=== PATIENT | male | born 1990 | race Caucasian/White ===

== ENCOUNTER 2019-03-07 15:56 | Emergency (ER) | payer OTHER ==
[~2019-03-07] VITALS: Wt 120.0 kg
[2019-03-07 15:59] VITALS: BP 160/89; PULSE 99; RESP 18
[2019-03-07] MEDS ORDERED: IBUPROFEN 800 MG TAB PO ONE (17:00)
[2019-03-07] MEDS ORDERED: IBUP-1542 PO (17:06)
--- NOTE | 2019-03-07 18:15 | ERD ---
ER Documentation Chief Complaint Chief Complaint LEFT ANKLE PAIN HPI Patient is a 28-year-old male with no medical problems who presents with left- sided foot pain. The patient said that he jumped off of a truck and landed on his foot and had pain afterwards. It happened 2 days ago. He has been walking on it. He has had no treatment for the pain as of yet. He denies knee pain. He does have a primary doctor but has not seen that doctor. ROS All systems reviewed and are negative except as per history of present illness. Medications Home Meds Active Scripts Ibuprofen* (Motrin*) 600 Mg Tab, 600 MG PO Q6H PRN for PAIN AND OR ELEVATED TEMP , #30 TAB Prov:AGUS SAN MD 03/07/19 Allergies Allergies: Coded Allergies: No Known Allergy (Unverified , 03/07/19) PMhx/Soc Hx Alcohol Use: Yes Hx Substance Use: No Hx Tobacco Use: No Smoking Status: Never smoker FmHx Family History: diabetes Physical Exam Vitals Vital Signs Date Temp Pulse Resp B/P (MAP) Pulse Ox O2 O2 Flow FiO2 Time Delivery Rate 03/07/19 98.1 99 18 160/89 99 15:59 (112) Physical Exam Const: No acute distress Head: Atraumatic Eyes: Normal Conjunctiva ENT: Normal External Ears, Nose and Mouth. Neck: Full range of motion. No meningismus. Resp: Clear to auscultation bilaterally Cardio: Regular rate and rhythm, no murmurs Abd: Soft, non tender, non distended. Normal bowel sounds Skin: No petechiae or rashes Back: No midline or flank tenderness Ext: Swelling and tenderness to the anterior foot of the left foot, tenderness to palpation, no pain at the medial or lateral malleolus Neur: Awake and alert Psych: Normal Mood and Affect Results 24 hrs Current Medications Medications Dose Sig/Esther Start Time Status Last (Trade) Ordered Route PRN Stop Time Admin Dose Reason Admin Ibuprofen 800 mg ONCE ONCE 03/07/19 DC 03/07/19 (Motrin) PO 17:00 03/07/19 16:59 17:01 Procedures/MDM X-ray Foot 3V Interpreted by me: Bones: Avulsion fracture of the navicular of the left foot Joints: No dislocation Foreign body: None Splint Note Type: Short leg Location: Left foot Indication: Avulsion fracture of the navicular bone Splint Assessment: Neurovascularly intact post splint placement with good fit. Patient is a 28-year-old male who presents with foot pain. The patient's x-ray shows an avulsion fracture of the navicular bone. The patient was placed in a splint and given crutches. The patient was given ibuprofen for pain. The patient will need to follow-up with Dr. Oscar from orthopedic surgery and can return for any worsening symptoms. I believe outpatient management is appropriate at this time. Departure Diagnosis: Primary Impression: Foot fracture Encounter type: initial encounter Fracture type: closed Laterality: left Qualified Codes: S92.902A - Unspecified fracture of left foot, initial encounter for closed fracture Condition: Fair Patient Instructions: Fracture, Foot Referrals: ROGER OSCAR MD Additional Instructions: SPECIALIST: YOU HAVE A MEDICAL CONDITION WHICH REQUIRES YOU TO SEE A SPECIALIST WITHIN THE NEXT 1-2 DAYS. PLEASE FOLLOW UP WITH YOUR PRIMARY PHYSICIAN FOR REFFERAL.IF YOU DO NOT HAVE A PRIMARY CARE PHYSICIAN AND/OR YOU CAN NOT AFFORD TO SEE A PHYSICIAN THE FOLLOWING RESOURCES HAVE BEEN SUPPLIED TO YOU. IT IS YOUR RESPONSIBILITY TO BE SEEN BY THE SPECIALIST AGUS SAN MD March 07, 2019 18:15
== END 2019-03-07 17:16 | disposition home or self-care (01) ==
LOC: FTE 15:56
DX: S92.252A Displaced fracture of navicular [scaphoid] of left foot, initial encounter for closed fracture (principal); X58.XXXA Exposure to other specified factors, initial encounter; Y92.9 Unspecified place or not applicable
CPT/HCPCS: 29515; 73630; Z7502; Z7610